=== PATIENT | male | born 1970 | race American Indian/Alaskan Native ===

== ENCOUNTER 2018-03-03 18:37 | Inpatient (IN) | payer MEDICAID, OTHER ==
[2018-03-03 18:42] VITALS: BMI 22.8
--- NOTE | 2018-03-03 18:52 | C.PDOC ---
History Of Present Illness 47 y/o M c no known PMHx BIBEMS with Lon LT in place s/p cardiac arrest with ROSC. Patient was reportedly playing basketball, suddenly lost consciousness, found to be in V fib by EMS, defibrillated 3 times total, amiodarone administered with ROSC. Patient had Lon LT place, first intubation attempt unsuccessful, no sedation given. Upon arrival to ED, patient vomiting, violently attempting to pull out Lon LT, did so, awake, breathing spontaneously. Full HPI/ROS unobtainable due to patient's condition and acuity of condition. Time Seen by Provider: 03/03/18 18:46 Chief Complaint (Nursing): Cardiac Arrest Past Medical History Vital Signs: Last Vital Signs Temp 97.9 F 03/03/18 22:20 Pulse 75 03/03/18 22:20 Resp 20 03/03/18 22:20 BP 103/65 03/03/18 22:20 Pulse Ox 99 03/03/18 22:20 Family History: States: Unknown Family Hx - Social History Hx Alcohol Use: No Hx Substance Use: Yes Review Of Systems Review Of Systems: ROS cannot be obtained secondary to pt's inabilty to answer questions. Physical Exam - Physical Exam Additional Physical Exam Comments: Gen: Drowsy but awake Head: NC/AT Eyes: PERRL ENT: Upper L lateral incisor not present Neck: No midline tenderness Chest: No tenderness, no deformity CV: Regular rate, pulses present Lungs: CTA b/l Abd: Soft, NT Back: No CVA tenderness Extremities: No edema Skin: No rash Neuro: Drowsy but awake, breathing spontaneously, withdraws to pain, intermittently responsive to questions ED Course And Treatment - Laboratory Results Result Diagrams: 03/03/18 18:58 03/03/18 18:58 Medical Decision Making Medical Decision Making: EKG NSR, 80 bpm, PVC, no ST elevations FINDINGS: Brain: The brain with normal daily-white matter differentiation, without acute intracranial hemorrhage, edema or mass effect. Midline shift: No midline shift is present. Ventricles: Unremarkable. No ventriculomegaly. Bones/joints: No calvarial fractures are visualized. Soft tissues: There is mild soft tissue edema consistent with posttraumatic contusion associated with the right occipital scalp. Sinuses: Unremarkable as visualized. No acute sinusitis. Mastoid air cells: Unremarkable as visualized. No mastoid effusion. Orbits: The orbits are normal. There is no evidence of retrobulbar hemorrhage. IMPRESSION: No significant injury noted to the patient's head. No acute intracranial findings are seen. Soft tissue swelling indicating posttraumatic contusion. CXR no acute disease. Patient remained intermittently arousable, breathing spontaneously, previous visit to ED for heroin overdose, did wake up transiently after narcan today. Dr. Moulton accepts patient to ICU. Dr. Forbes accepts patient to medical service and recommends cardiology consult with Dr. Dye. Disposition - Disposition Disposition: HOSPITALIZED Disposition Time: 20:00 Condition: SERIOUS - Clinical Impression Clinical Impression: Cardiac arrest Critical Care Time - Critical Care Note Total Time (in mins): 60 Comments: Required my immediate attention for life threatening condition, frequent reassessments, and multiple specialty conversations. Documented critical care: time excludes all time spent performing seperately billable procedures.
[2018-03-03 19:02] LABS: BASO # 0.1 K/uL (0.0-0.2); BASO % 0.7 % (0.0-2.0); EOS # 0.3 K/uL (0.0-0.7); EOS % 2.1 % (0.0-4.0); HEMOGLOBIN 13.1 g/dL (12.0-18.0); LYMPH # 6.8 K/uL (1.0-4.3); LYMPH % 47.4 % (20.0-40.0); MEAN CELL VOLUME 97.9 fL (80.0-94.0); MEAN CORPUSCULAR HEMOGLOBIN 31.6 pg (27.0-31.0); MEAN CORPUSCULAR HGB CONC 32.3 g/dL (33.0-37.0); MEAN PLATELET VOLUME 8.3 fL (7.2-11.7); MONO # 1.2 K/uL (0.0-0.8); MONO % 8.1 % (0.0-10.0); NEUT % 41.7 % (50.0-75.0); RBC 4.15 Mil/uL (4.40-5.90); WHITE BLOOD COUNT 14.3 K/uL (4.8-10.8)
[2018-03-03 19:10] LABS: INR 1.1; PROTHROMBIN TIME 11.8 SECONDS (9.7-12.2)
[2018-03-03 19:22] LABS: ALB/GLOB RATIO 1.5 (1.0-2.1); ALBUMIN 4.4 g/dL (3.5-5.0); ALT/SGPT 66 U/L (21-72); AST/SGOT 82 U/L (17-59); BLOOD UREA NITROGEN 12 mg/dL (9-20); GFR AFRICAN-AMERICAN > 60; GFR NON-AFRICAN AMERICAN 54
[2018-03-03 19:28] LABS: CK-MB 3.41 ng/mL (0.0-3.38)
[2018-03-03] MEDS ORDERED: Naloxone 0.4 mg/ml Inj (Adult) ONE (19:44)
[2018-03-03] MEDS ORDERED: Naloxone 0.4 mg/ml Inj (Adult) IVP ONE (19:44)
[2018-03-03 19:58] LABS: SQUAMOUS EPITHIAL 1 /hpf (0-5); URINE BACTERIA OCC (<OCC); URINE BILIRUBIN NEGATIVE (NEGATIVE); URINE BLOOD 3+ (NEGATIVE); URINE CLARITY Hazy (Clear); URINE COLOR Amber (YELLOW); URINE GLUCOSE (UA) NORMAL (Normal); URINE LEUKOCYTE ESTERASE NEG Leu/uL (Negative); URINE PROTEIN 3+ mg/dL (NEGATIVE)
[2018-03-03 20:30] LABS: BARBITURATES, UR NEGATIVE (NEGATIVE); BENZODIAZEPINES, UR NEGATIVE (NEGATIVE); PHENCYCLIDINE, UR NEGATIVE (NEGATIVE)
[2018-03-03 20:31] LABS: OPIATES, UR POSITIVE (NEGATIVE)
[2018-03-03 21:35] LABS: ABG ALLEN TEST POS; ARTERIAL BLOOD GAS HCO3 23.7 mmol/L (21-28); ARTERIAL BLOOD GAS O2 SAT 93.9 % (95-98); ARTERIAL BLOOD GAS PCO2 40 mm/Hg (35-45); ARTERIAL BLOOD GAS PH 7.38 (7.35-7.45); ARTERIAL BLOOD GAS PO2 59 mm/Hg (80-100); ARTERIAL BLOOD GAS TCO2 24.9 mmol/L (22-28)
--- NOTE | 2018-03-03 21:56 | CP.PCM.CON ---
History of Present Illness - History of Present Illness History of Present Illness: 47 M with h/o heroin abuse, history obtained from medical record as patient is lethargic and not answering questions. As per record, patient collapsed during a basket ball game, EMS found him in Vfib and was shocked and given amiodarone, intubation tried but then airway protected by Lon's tube. In ER patient was sinus rhythm and was gagging, Lon's tube removed patient was lethargic but still responding. Mental status in ER improved with narcan 0.4mg suggesting lethargy due to opiod overdose. Patient not in ER on 3 lit nc, spo2 100%, in no distress, patient turned in the side before he had episode of vomiting. Arosuable but would not communicate. Head CT, chest xray uremarkable, uds + opiod and cannabinoids. PMH similar history as discussed with ER, but no record available Social history not available Family history not available Meds not available Allergies not available Review of Systems - Review of Systems All systems: reviewed and no additional remarkable complaints except (HPI) Past Patient History - Past Social History Smoking Status: Heavy Smoker > 10 Cigarettes Daily - PSYCHIATRIC Hx Substance Use: Yes - SURGICAL HISTORY Hx Surgeries: No - ANESTHESIA Hx Anesthesia: No Meds Allergies/Adverse Reactions: Allergies Allergy/AdvReac Type Severity Reaction Status Date / Time No Known Allergies Allergy Verified 03/03/18 18:41 - Medications Medications: Current Medications Heparin Sodium (Porcine) (Heparin) 5,000 units SC Q12 EVER Doxycycline Hyclate 100 mg/ (Sodium Chloride) 100 mls @ 100 mls/hr IVPB Q12H EVER PRN Reason: Protocol Ondansetron HCl (Zofran Inj) 4 mg IVP Q6H PRN PRN Reason: Nausea/Vomiting Pantoprazole Sodium (Protonix Inj) 40 mg IVP DAILY EVER Physical Exam - Additional Findings Additional findings: * HEENT pupils 2-3 mm b/l reacting * Neck supple * Chest mild crackles on the right side in the back * CVS Regular, no gallop or rub * PA soft, nt bs present * Ext no edema * [employer] lethargic, arousable, moving all ext * Skin turgor normal. Results - Vital Signs Recent Vital Signs: Last Vital Signs Temp 97.7 F 03/03/18 20:45 Pulse 74 03/03/18 20:45 Resp 20 03/03/18 20:45 BP 95/61 L 03/03/18 20:45 Pulse Ox 99 03/03/18 20:45 - Labs Result Diagrams: 03/03/18 18:58 03/03/18 18:58 Labs: Laboratory Results - last 24 hr 03/03/18 03/03/18 03/03/18 18:52 18:58 18:58 WBC 14.3 H D RBC 4.15 L Hgb 13.1 Hct 40.6 MCV 97.9 H MCH 31.6 H MCHC 32.3 L RDW 13.0 Plt Count 199 MPV 8.3 Neut % (Auto) 41.7 L Lymph % (Auto) 47.4 H [place] % (Auto) 8.1 Eos % (Auto) 2.1 Baso % (Auto) 0.7 Neut # (Auto) 6.0 Lymph # (Auto) 6.8 H [place] # (Auto) 1.2 H Eos # (Auto) 0.3 Baso # (Auto) 0.1 PT 11.8 INR 1.1 APTT 27 Puncture Site pCO2 pO2 HCO3 ABG pH ABG Total CO2 ABG O2 Saturation ABG Base Excess Mario Test ABG Potassium A-a O2 Difference Respiratory Index Glucose Lactate FiO2 Sodium Potassium Chloride Carbon Dioxide Anion Gap BUN Creatinine Est GFR ( Amer) Est GFR (Non-Af Amer) POC Glucose (mg/dL) 195 H Random Glucose Calcium Total Bilirubin AST ALT Alkaline Phosphatase Total Creatine Kinase CK-MB (Mass) Troponin I Total Protein Albumin Globulin Albumin/Globulin Ratio Arterial Blood Potassium Urine Color Urine Clarity Urine pH Ur Specific Munith Urine Protein Urine Glucose (UA) Urine Ketones Urine Blood Urine Nitrate Urine Bilirubin Urine Urobilinogen Ur Leukocyte Esterase Urine WBC (Auto) Urine RBC (Auto) Ur Squamous Epith Cells Urine Bacteria Urine Opiates Screen Urine Methadone Screen Ur Barbiturates Screen Ur Phencyclidine Scrn Ur Amphetamines Screen U Benzodiazepines Scrn U Oth Cocaine Metabols U Cannabinoids Screen Blood Type Antibody Screen 03/03/18 03/03/18 03/03/18 18:58 19:03 19:41 WBC RBC Hgb Hct MCV MCH MCHC RDW Plt Count MPV Neut % (Auto) Lymph % (Auto) [place] % (Auto) Eos % (Auto) Baso % (Auto) Neut # (Auto) Lymph # (Auto) [place] # (Auto) Eos # (Auto) Baso # (Auto) PT INR APTT Puncture Site pCO2 pO2 HCO3 ABG pH ABG Total CO2 ABG O2 Saturation ABG Base Excess Mario Test ABG Potassium A-a O2 Difference Respiratory Index Glucose Lactate FiO2 Sodium 145 Potassium 2.9 L Chloride 105 Carbon Dioxide 15 L Anion Gap 29 H BUN 12 Creatinine 1.4 Est GFR ( Amer) > 60 Est GFR (Non-Af Amer) 54 POC Glucose (mg/dL) Random Glucose 189 H Calcium 9.0 Total Bilirubin 0.6 AST 82 H ALT 66 Alkaline Phosphatase 103 Total Creatine Kinase 510 H CK-MB (Mass) 3.41 H Troponin I < 0.0120 Total Protein 7.2 Albumin 4.4 Globulin 2.8 Albumin/Globulin Ratio 1.5 Arterial Blood Potassium Urine Color Anayeli Urine Clarity Hazy Urine pH 5.0 Ur Specific Munith 1.024 Urine Protein 3+ H Urine Glucose (UA) Normal Urine Ketones Negative Urine Blood 3+ H Urine Nitrate Negative Urine Bilirubin Negative Urine Urobilinogen 2.0 Ur Leukocyte Esterase Neg Urine WBC (Auto) 6 H Urine RBC (Auto) 128 H Ur Squamous Epith Cells 1 Urine Bacteria Occ H Urine Opiates Screen Urine Methadone Screen Ur Barbiturates Screen Ur Phencyclidine Scrn Ur Amphetamines Screen U Benzodiazepines Scrn U Oth Cocaine Metabols U Cannabinoids Screen Blood Type O POSITIVE Antibody Screen Negative 03/03/18 03/03/18 20:03 21:30 WBC RBC Hgb Hct MCV MCH MCHC RDW Plt Count MPV Neut % (Auto) Lymph % (Auto) [place] % (Auto) Eos % (Auto) Baso % (Auto) Neut # (Auto) Lymph # (Auto) [place] # (Auto) Eos # (Auto) Baso # (Auto) PT INR APTT Puncture Site Rra pCO2 40 pO2 59 L HCO3 23.7 ABG pH 7.38 ABG Total CO2 24.9 ABG O2 Saturation 93.9 L ABG Base Excess -1.3 Mario Test Pos ABG Potassium 3.1 L A-a O2 Difference 91.0 Respiratory Index 1.5 Glucose 114 H Lactate 1.5 FiO2 28.0 Sodium 142.0 Potassium Chloride 111.0 H Carbon Dioxide Anion Gap BUN Creatinine Est GFR ( Amer) Est GFR (Non-Af Amer) POC Glucose (mg/dL) Random Glucose Calcium Total Bilirubin AST ALT Alkaline Phosphatase Total Creatine Kinase CK-MB (Mass) Troponin I Total Protein Albumin Globulin Albumin/Globulin Ratio Arterial Blood Potassium 3.1 L Urine Color Urine Clarity Urine pH Ur Specific Munith Urine Protein Urine Glucose (UA) Urine Ketones Urine Blood Urine Nitrate Urine Bilirubin Urine Urobilinogen Ur Leukocyte Esterase Urine WBC (Auto) Urine RBC (Auto) Ur Squamous Epith Cells Urine Bacteria Urine Opiates Screen Positive H Urine Methadone Screen Negative Ur Barbiturates Screen Negative Ur Phencyclidine Scrn Negative Ur Amphetamines Screen Negative U Benzodiazepines Scrn Negative U Oth Cocaine Metabols Negative U Cannabinoids Screen Positive H Blood Type Antibody Screen Assessment & Plan - Assessment and Plan (Free Text) Assessment: * Vfib arrest likely form opiod overdose, suspected from resp arrest * lethargy form opiod overdose, responded to norcan, now maintaining airway, spo2 * Hypokalemia Plan: * Observe in ICU * Aspiration, seizure precaution * Replace kcl, check mag * End tidal co2 monitoring * Echo, cardiology consult requested by primary team to assess other causes for vfib arrest * gi/dvt prophylaxis * See orders for detail.
[2018-03-03] MEDS ORDERED: Albuterol-Ipratrop 3 mg / 0.5 (3 ml) UD INH PRN (22:41)
[2018-03-03] MEDS: Potassium Chloride 20 MEQ in Sodium Chloride 0.45% 1,000 ML IV SCH (23:00)
[2018-03-04 06:28] LABS: BASO # 0.1 K/uL (0.0-0.2); BASO % 0.5 % (0.0-2.0); HEMOGLOBIN 12.9 g/dL (12.0-18.0); LYMPH # 0.9 K/uL (1.0-4.3); LYMPH % 6.6 % (20.0-40.0); MEAN CELL VOLUME 94.9 fL (80.0-94.0); MEAN CORPUSCULAR HEMOGLOBIN 31.7 pg (27.0-31.0); MEAN CORPUSCULAR HGB CONC 33.4 g/dL (33.0-37.0); MEAN PLATELET VOLUME 8.4 fL (7.2-11.7); MONO # 0.6 K/uL (0.0-0.8); MONO % 4.4 % (0.0-10.0); NEUT # 11.8 K/uL (1.8-7.0); NEUT % 88.5 % (50.0-75.0); PLATELET COUNT 172 K/uL (130-400); RBC 4.08 Mil/uL (4.40-5.90); RED CELL DISTRIBUTION WIDTH 12.8 % (11.5-14.5); WHITE BLOOD COUNT 13.4 K/uL (4.8-10.8)
[2018-03-04] MEDS ORDERED: MethylPREDNISolone 40 mg Vial IVP STA (06:38)
[2018-03-04 06:47] LABS: ALB/GLOB RATIO 1.4 (1.0-2.1); ALBUMIN 3.9 g/dL (3.5-5.0); ALT/SGPT 81 U/L (21-72); AST/SGOT 85 U/L (17-59); BLOOD UREA NITROGEN 18 mg/dL (9-20); CALCIUM 8.7 mg/dl (8.6-10.4); GFR AFRICAN-AMERICAN > 60; GFR NON-AFRICAN AMERICAN > 60
[2018-03-04 06:55] LABS: CK-MB 8.27 ng/mL (0.0-3.38)
[2018-03-04 08:33] LABS: BANDS 1 % (0-2); LYMPHOCYTE 6 % (20-40); MONOCYTE 3 % (0-10); NEUTROPHIL 90 % (50-75); PLATELET ESTIMATE NORMAL (NORMAL); TOTAL CELLS COUNTED 100
--- NOTE | 2018-03-04 08:47 | RAD ---
Date of service: 03/03/2018 HISTORY: cardiac arrest COMPARISON: Portable chest 04/25/2015. FINDINGS: LUNGS: No active pulmonary disease. PLEURA: No significant pleural effusion identified, no pneumothorax apparent. CARDIOVASCULAR: Hilar vascular prominence is seen bilaterally may reflect limited pulmonary vascular congestion. Cardiac size does not appear significantly changed in the interval. OSSEOUS STRUCTURES: No significant abnormalities. VISUALIZED UPPER ABDOMEN: Normal. OTHER FINDINGS: None. IMPRESSION: Borderline pulmonary vascular congestion. No acute pulmonary disease bilaterally.
[2018-03-04] MEDS: Budesonide 0.5 mg/2 ml Inhal Susp UD INH SCH ×2 (09:10→19:02)
--- NOTE | 2018-03-04 10:19 | CT ---
Date of service: 03/03/2018 PROCEDURE: CT HEAD WITHOUT CONTRAST. HISTORY: fall COMPARISON: None available. TECHNIQUE: Axial computed tomography images were obtained through the head/brain without intravenous contrast. Radiation dose: Total exam DLP = 1037.73 mGy-cm. This CT exam was performed using one or more of the following dose reduction techniques: Automated exposure control, adjustment of the mA and/or kV according to patient size, and/or use of iterative reconstruction technique. FINDINGS: HEMORRHAGE: No intracranial hemorrhage. BRAIN: Normal daily-white matter differentiation and density are appreciated throughout the cerebrum and cerebellum with the brainstem appearing unremarkable as well. There is no mass effect. There is no suspicious extra-axial fluid collection and the midline brain anatomy appears diffusely unremarkable. VENTRICLES: Unremarkable. No hydrocephalus. CALVARIUM: No destructive bony lesion or displaced fracture identified including through the skullbase. Right occipital scalp edema noted. PARANASAL SINUSES: Unremarkable as visualized. No significant inflammatory changes. MASTOID AIR CELLS: Unremarkable as visualized. No inflammatory changes. OTHER FINDINGS: None. IMPRESSION: No acute intracranial findings. Right occipital scalp edema appreciated. Concordant preliminary report from [facility], 03/03/2018.
[2018-03-04] MEDS: Potassium Chloride 20 MEQ in Sodium Chloride 0.45% 1,000 ML IV SCH (11:25)
[2018-03-04 13:22] VITALS: BP 110/76; O2SAT 100
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
[2018-03-04 15:15] VITALS: TEMP 97.7
[2018-03-04 15:48] LABS: CK-MB 7.93 ng/mL (0.0-3.38); TROPONIN I 0.912 ng/mL (0.00-0.120)
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
[2018-03-04 20:26] VITALS: PULSE 80; RESP 18
--- NOTE | 2018-03-05 07:19 | CON ---
Copied To: Anup Dye MD Attending MD: Anup Dye MD DATE: 03/04/2018 LOCATION: Seen in ICU bed #7. HISTORY OF PRESENT ILLNESS: Requested to see this 47-year-old black male due to possible cardiac arrest out of hospital. He was brought by ambulance, advanced cardiac life support after apparently he collapsed while playing basketball. Upon arrival of the EMS, he was found to be in cardiac dysrhythmia, and I was told that he was in ventricular fibrillation; however, we have been unable to locate the rhythm strips. We looked everywhere in the intensive care unit, and there is no record of the strips. He was defibrillated apparently several times in the field. He was intubated on the way to the hospital and on arrival to the emergency room because of the history of heroin abuse in the past, he was given Narcan, and he began to respond. He subsequently woke up and pulled the endotracheal tube. When I visited him in the intensive care unit, he was sleeping. He was not very cooperative. He wanted and told me several times that he just wanted to get out of here when he was going to get out of here and assumed that he was threatening with signing out against medical advice. As mentioned above, past medical history includes heroin abuse in the past, and he apparently had one episode of overdose in the past. PHYSICAL EXAMINATION: GENERAL: When I saw him, he denied any chest discomfort. He just wanted to "get out of here." VITAL SIGNS: The vital signs were totally stable when I saw him in the intensive care unit. Blood pressure was about 130/70. Continuous study of monitoring showing sinus rhythm about 70 per minute. Respiratory rate was unremarkable. SKIN: He allowed me to examine him briefly, and his skin showed no edema. I was not able to really look carefully for any signs of track mosley, etc. NECK: Supple. Jugular veins were not distended. LUNGS: Totally clear to auscultation. CARDIOLOGICAL EXAM: Heart sounds were normal in intensity and regular. ABDOMEN: Showed no acute tenderness. MATERIAL REPROCESSING ASSOCIATE EXAM: When I was examining him, he was alert, uncooperative, and moving all extremities quite well. COMPLEMENTARY DATA: An EKG basically normal when I saw him, looking for rare PVC. Initial troponin was at the borderline. Potassium on arrival was low at 2.9. He received IV potassium supplement. Urine drug screen was positive for opiates. An echocardiogram showed possible mildly depressed overall left ventricular systolic function at the borderline. No gross wall motion segmental abnormality. IMPRESSION: 1. Apparently witnessed cardiopulmonary arrest, cardiac dysrhythmia. 2. Possible heroin overdose. I cannot totally exclude this at this point. Presently totally stable and once again when I saw him, he was indicating to me that he was going to get out of the hospital. Anup Dye MD
[2018-03-05] MEDS ORDERED: Pneumococcal 23-Valent Vaccine IM ONE (10:00)
== END 2018-03-04 19:00 | disposition left against medical advice (07) | DRG 582 ==
LOC: C.ER 18:37 → C.9I 21:26
PROVIDERS: ADMIT Internal Medicine; ATTEND Internal Medicine
DX: T40.1X1A Poisoning by heroin, accidental (unintentional), initial encounter (principal); I49.01 Ventricular fibrillation; I46.2 Cardiac arrest due to underlying cardiac condition; E87.6 Hypokalemia; F11.10 Opioid abuse, uncomplicated; I47.2 Ventricular tachycardia; I49.3 Ventricular premature depolarization; F17.210 Nicotine dependence, cigarettes, uncomplicated; X58.XXXA Exposure to other specified factors, initial encounter; Y93.67 Activity, basketball; Z87.891 Personal history of nicotine dependence